=== PATIENT | female | born 1955 | race Caucasian/White ===

== ENCOUNTER → 2022-07-27 09:57 | Outpatient (BNVA) | payer MEDICARE, SELFPAY | PROVIDERS: Family Provider Student in an Organized Health Care Education/Training Program; PCP Nurse Practitioner Family; Visit Provider Nurse Practitioner Family | DX: I10 Essential (primary) hypertension (principal); M25.50 Pain in unspecified joint; G51.0 Bell's palsy; E78.5 Hyperlipidemia, unspecified; E55.9 Vitamin D deficiency, unspecified; Z90.710 Acquired absence of both cervix and uterus; Z98.890 Other specified postprocedural states; Z98.51 Tubal ligation status; Z79.899 Other long term (current) drug therapy | CPT/HCPCS: 80053; 80061; 82306; 82550; 84439; 84443; 84481; 86038; 86140; 86431 ==

== ENCOUNTER → 2022-08-05 09:45 | Outpatient (BNVA) | payer MEDICARE, SELFPAY | PROVIDERS: Family Provider Student in an Organized Health Care Education/Training Program; PCP Nurse Practitioner Family; Visit Provider Nurse Practitioner Family | DX: L25.5 Unspecified contact dermatitis due to plants, except food (principal) | CPT/HCPCS: 88304 ==

== ENCOUNTER → 2022-09-25 13:09 | Outpatient (BNVA) | payer MEDICARE, SELFPAY | PROVIDERS: Family Provider Student in an Organized Health Care Education/Training Program; PCP Nurse Practitioner Family; Visit Provider Nurse Practitioner Family | DX: J02.9 Acute pharyngitis, unspecified (principal) | CPT/HCPCS: 87071; 87880 ==

== ENCOUNTER 2022-12-31 08:58 | Outpatient (CLI) | payer MEDICARE, SELFPAY ==
--- NOTE | 2022-12-31 09:00 | MM_ITS ---
WS: [id number] VIEWS: MLO and CC views both breasts. 3D digital tomosynthesis is also included in this exam. No priors. Baseline study. Findings: There was no sign of mass, architectural distortion or suspicious calcification in either breast. The re are scattered areas of fibroglandular density Impression: MM/[place] [id number] BI-RADS: 1-Negative FOLLOW-UP: 1 Year Follow-up This mammogram was also analyzed by the Computer Aided Detection System R2 Imag e [employer].
== END 2022-12-31 08:59 | disposition home or self-care (01) ==
LOC: MOBLMAM 09:03
PROVIDERS: PCP Nurse Practitioner Family; Visit Provider Nurse Practitioner
DX: Z12.31 Encounter for screening mammogram for malignant neoplasm of breast
CPT/HCPCS: 77063; 77067

== ENCOUNTER → 2023-03-26 08:13 | Outpatient (BNVA) | payer MEDICARE, SELFPAY | PROVIDERS: PCP Family Medicine; Referring Provider Family Medicine; Visit Provider Nurse Practitioner | DX: G56.03 Carpal tunnel syndrome, bilateral upper limbs (principal) | CPT/HCPCS: 73110; 99204 ==

== ENCOUNTER → 2023-05-25 08:41 | Outpatient (BNVA) | payer MEDICARE, SELFPAY | PROVIDERS: PCP Family Medicine; Referring Provider Nurse Practitioner; Visit Provider Specialist | DX: G56.03 Carpal tunnel syndrome, bilateral upper limbs (principal) | CPT/HCPCS: 95911 ==

== ENCOUNTER → 2023-06-02 07:55 | Outpatient (BNVA) | payer MEDICARE, SELFPAY | PROVIDERS: PCP Family Medicine; Visit Provider Nurse Practitioner | DX: G56.03 Carpal tunnel syndrome, bilateral upper limbs (principal) | CPT/HCPCS: 99213 ==

== ENCOUNTER → 2023-08-25 08:54 | Outpatient (BNVA) | payer MEDICARE, SELFPAY | PROVIDERS: PCP Family Medicine; Visit Provider Family Medicine | DX: E78.5 Hyperlipidemia, unspecified (principal); R79.89 Other specified abnormal findings of blood chemistry; M25.50 Pain in unspecified joint; E55.9 Vitamin D deficiency, unspecified | CPT/HCPCS: 80053; 80061; 82306; 82607; 82746; 83735; 84443; 85025; 85651; 86038; 86140; 86431 ==

== ENCOUNTER → 2023-09-15 08:00 | Outpatient (BNVA) | payer MEDICARE, SELFPAY | PROVIDERS: PCP Family Medicine; Visit Provider Nurse Practitioner | DX: G56.03 Carpal tunnel syndrome, bilateral upper limbs (principal) | CPT/HCPCS: 99214 ==

== ENCOUNTER 2023-09-23 10:28 | Day surgery (SDC) | payer MEDICARE, SELFPAY ==
[2023-09-23] VITALS (10 sets, daily range): BP systolic 121–151; BP diastolic 72–97; PULSE 73–88; RESP 17–25; TEMP 36.2–36.7; O2SAT 91–99; BMI 29.8
[2023-09-23] MEDS: acetaminophen 1,000 MG/100 ML PIGGYBACK 400 MG IV (10:51)
[2023-09-23] MEDS: CELEcoxib 200 mg Capsule 400 MG PO (10:51)
[2023-09-23] MEDS: gabapentin 300 mg Capsule PO (10:51)
[2023-09-23] MEDS: sodium chloride 0.9% 1,000 ML 30 ML IV (10:51)
--- NOTE | 2023-09-23 10:57 | ANES.PREANE2 ---
Pre-Anesthetic Assessment Height/Weight: Height 1.68 m Weight 83.915 kg Temp Pulse Resp BP Pulse Ox O2 Del Method 97.9 F 81 18 131/88 99 Room Air 09/23/23 10:39 09/23/23 10:39 09/23/23 10:39 09/23/23 10:39 09/23/23 10:39 09/23/23 10:42 Operation Date: 09/23/23 11:55 Proposed Procedures p Carpal Tunnel Release(Left) - Noemy Browning MD Familial anesthetic complications: None Was Beta Oleg taken within 24 hours: N/A Was Clonidine taken within 24 hours: N/A Last intake: Intake Last Liquid Date 09/22/23 Last Liquid Time 22:00 Last Solid Date 09/22/23 Last Solid Time 22:00 Social No alcohol and No tobacco Exam alert, oriented x 3, clear to auscultation bilaterally and regular rate & rhythm Airway Mallampati: Class II Dentition: full Metabolic Hyperlipidemia Anesthetic Plan ASA status: 2 Anesthesia: General Risk of > 500 ml blood loss (7ml/kg in children): No Medications/Allergies Home Medications Medication Instructions Recorded Confirmed Last Taken Type grmqopccnsifr-rllgsbzkd-ioxwgqne 2 ml PO 12/14/22 09/15/23 Unknown History mg-10 mg-0.75 mg/5 mL oral liquid cholecalciferol (vitamin D3) 325 325 mcg PO DAILY 12/14/22 09/22/23 09/15/23 History mcg (13,000 unit) capsule cinnamon bark 500 mg capsule 500 mg PO DAILY 12/14/22 09/22/23 09/18/23 History (Cinnamon) fexofenadine 180 mg tablet 180 mg PO Q24H 12/14/22 09/22/23 09/22/23 History (Lizeth Allergy) flaxseed oil 1,000 mg capsule 1,000 mg PO DAILY 12/14/22 09/22/23 09/22/23 History garlic 500 mg capsule 500 mg PO DAILY 12/14/22 09/22/23 09/18/23 History magnesium hydroxide 400 mg (170 mg mg PO 12/14/22 09/15/23 09/22/23 History magnesium) chewable tablet niacin 50 mg tablet 50 mg PO DAILY 12/14/22 09/22/23 09/22/23 History vitamin E acetate 134 mg (200 134 mg PO DAILY 12/14/22 09/22/23 09/18/23 History unit) capsule atorvastatin 40 mg tablet 40 mg PO DAILY #90 tabs 01/05/23 09/22/23 09/22/23 Rx celecoxib 200 mg capsule (Celebrex) 200 mg PO BID #180 caps 01/05/23 09/22/23 09/22/23 Rx estradiol 2 mg tablet 2 mg PO DAILY #90 tabs 01/05/23 09/22/23 09/22/23 Rx baclofen 20 mg tablet 20 mg PO TID #90 tabs 03/22/23 09/22/23 09/23/23 07:00 Rx Bilateral Cock Up Splints #1 ea 03/26/23 09/15/23 Unknown Rx diclofenac sodium 1 % topical gel 2 g topical QID #100 grams 03/26/23 09/22/23 09/22/23 Rx Allergies Allergy/AdvReac Type Severity Reaction Status Date / Time No Known Allergies Allergy Verified 09/23/23 10:34 Current Medications Generic Name Dose Route Start Last Admin Trade Name Freq PRN Reason Stop Dose Admin Sodium Chloride 1,000 mls @ 30 mls/hr 09/23/23 10:45 09/23/23 10:51 Sodium Chloride 0.9% IV 09/24/23 10:44 30 mls/hr .Q24H ZENY Administration PFSH Anesthesia Medical History Hyperlipidemia Surgical History Previous back surgery H/O tubal ligation H/O: hysterectomy Family History Father Cancer Dementia Denies family history of Diabetes CAD (coronary artery disease) Clotting disorder Hyperlipidemia Psychiatric illness Chronic kidney disease (CKD) Suicide Bleeding disorder Family history of premature coronary artery disease Lung disease Hypertension Stroke Social History Smoking and tobacco/nicotine status: never used tobacco/nicotine Female Reproductive History Spontaneous abortions: No Data Anesthesia Cardiac Studies: No Data to Display
--- NOTE | 2023-09-23 10:59 | W.PM.OPSUD ---
Surgery/Procedure H&P Update DATE OF PROCEDURE: September 23, 2023 DATE H&P PERFORMED: 09/15/23 H&P UPDATE INFORMATION: I have reviewed H&P completed within last 30 days, I have examined patient prior to procedure, No changes to prior documentation and H&P is in [facility] EMR on date indicated PLANNED PROCEDURE: Operation Date: 09/23/23 11:55 Proposed Procedures p Carpal Tunnel Release(Left) - Noemy Browning MD Related Problem List Diagnoses (1) Carpal tunnel syndrome, left:
--- NOTE | 2023-09-23 11:00 | P.OP_ITS ---
Operative Report Date of procedure: September 23, 2023 Pre-op diagnosis: Left carpal tunnel syndrome Post-op diagnosis: Left carpal tunnel syndrome Post-op findings: Significant compression across the median nerve with purplish discoloration. Procedure done: Left carpal tunnel release Implants: None Specimens removed/disposition: None Surgeon: Noemy Browning MD Lipstick Molder: None Anesthesia: General (Per LMA, ASA 2) Estimated blood loss (mL): 2 Tourniquet time (min): 9 (At 250 mmHg) IV fluids (mL): 600 Urine output (mL): 0 (No Membreno) Complications: None Findings: Significant compression across the carpal canal Condition: stable Disposition: PACU (Then return to same-day surgery for discharge to home) Brief History: This 68-year-old woman presents today for left carpal tunnel release. When she was seen in the office, she had bilateral symptoms, but the left was worse than the right. She was not able to manage them conservatively. She was having difficulties with activities of daily living. She was taking anti-inflammatory medications as well as doing exercises, bracing, and had considered injection therapies as well. The patient wished to proceed with left carpal tunnel release. Risk and complications were discussed in the office. Consents were signed. Procedure: The patient was brought to the operating theater. The patient was administered a general anesthetic per LMA, ASA 2. This was well-tolerated. The tourniquet was elevated to 250 mmHg for a total tourniquet time of 9 minutes. The patient was also given Ancef 2 g preoperatively. The arm was then prepped and draped with DuraPrep in usual fashion with the arm draped free. A surgical pause was performed. At the time, the surgical pause, we confirmed the site and side of surgery. We also confirmed the patient's identity, appropriate and timely administration of preoperative antibiotics and preoperative surgical markings. An incision was then made along the thenar crease. The incision crossed the wrist joint in a curvilinear fashion. Dissection continued through skin and soft tissues using a scalpel. The palmaris longus was identified along with the transverse carpal ligament. Each of these was released carefully to avoid injury to the median nerve. We were able to dissect gently into the carpal canal which was noted to be quite tight with significant compression across the median nerve. The nerve was visualized and was an hourglass shape. The canal was subsequently palpated to assure there was no bony encroachment upon the canal. There was a quite thickened fibrous tissue within the canal, and this was opened longitudinally as well. The canal was then palpated distally and proximally to assure that my small finger was passed easily without impingement. Finding this to be so, attention was directed to closure. The wound was irrigated with ropivacaine plain. It was then closed with 3-0 nylon in an interrupted mattress fashion. Sterile dressing was then placed consisting of Dermabond, OpSite, fluffed fluffs, sterile soft roll, and an Johnny wrap. The tourniquet was released after 9 minutes. There were no complications. There were no specimens. The procedure was well tolerated. Plan is the patient will be discharged home. Related Problem List Diagnoses (1) Carpal tunnel syndrome, left:
--- NOTE | 2023-09-23 11:05 | ECG_ITS ---
[facility] Test Date: 2023-09-23 Pat Name: Ghazala Hirsch Department: Room: Gender: Female Vp Compliance: : 1955 Requested By: Noemy Browning Order Number: [id number] Juno MD: Gabino Francisco M.D. Measurements Intervals [place] Rate: 76 P: 36 TX: 175 QRS: -36 QRSD: 91 T: 23 QT: 397 QTc: 448 Interpretive Statements SINUS RHYTHM LEFT AXIS DEVIATION [QRS AXIS < -30] LOW QRS VOLTAGE IN PRECORDIAL LEADS [QRS DEFLECTION < 1.0 mV IN CHEST LEADS] POSSIBLE RIGHT VENTRICULAR CONDUCTION DELAY [RSR (QR) IN V1/V2] Compared to ECG 10/16/2018 14:03:33 Left-axis deviation now present Sinus tachycardia no longer present Incomplete right bundle-branch block no longer present Left anterior fascicular block no longer present Myocardial infarct finding no longer present Electronically Signed On 09-23-2023 22:28:52 CDT by Gabino Francisco M.D. [id number]
[2023-09-23] MEDS: ceFAZolin 2,000 mg SDV 2000 MG IVP (11:20)
[2023-09-23] MEDS: BUPivacaine 0.5% INJ 30 mL XX (11:50)
--- NOTE | 2023-09-23 13:40 | ANE.PACU2 ---
Inpatient post-anesthesia follow up: Airway intact: Yes Vital signs: Temperature 97.1 F Pulse Rate 84 Respiratory Rate 18 Blood Pressure 129/82 Pulse Oximetry 91 Oxygen Delivery Me thod Room Air Oxygen Flow Rate 8 Fraction of Inspir ed Oxygen Hydration adequate: Yes Nausea and vomiting: No Pain level: 1 Mental status: Baseline
== END 2023-09-23 13:43 | disposition home or self-care (01) ==
PROVIDERS: PCP Family Medicine; Visit Provider Specialist
PROC: (CPT 64721; principal; 2023-09-23 11:45)
DX: G56.02 Carpal tunnel syndrome, left upper limb (principal); E78.5 Hyperlipidemia, unspecified
CPT/HCPCS: 64721; 93005; J0131; J0690; J1100; J2405; J2704; J3010; J3490; J7030

== ENCOUNTER → 2023-10-06 15:15 | Outpatient (BNVA) | payer MEDICARE, SELFPAY | PROVIDERS: PCP Family Medicine; Visit Provider Nurse Practitioner | DX: G56.03 Carpal tunnel syndrome, bilateral upper limbs (principal); Z98.890 Other specified postprocedural states | CPT/HCPCS: 99213 ==

== ENCOUNTER 2023-11-02 11:33 | Day surgery (SDC) | payer MEDICARE, SELFPAY ==
[2023-11-02] VITALS (11 sets, daily range): BP systolic 111–138; BP diastolic 63–93; PULSE 77–88; RESP 13–20; TEMP 36.3–36.4; O2SAT 90–97; BMI 29.7
--- NOTE | 2023-11-02 12:07 | ANES.PREANE2 ---
Pre-Anesthetic Assessment Height/Weight: Height 5 ft 6 in Operation Date: 11/02/23 13:45 Proposed Procedures p Carpal Tunnel Release(Right) - Noemy Browning MD Social No alcohol and No tobacco Exam alert, oriented x 3, clear to auscultation bilaterally and regular rate & rhythm Airway Submandibular: within normal limits Cervical ROM: within normal limits Mallampati: Class II Dentition: full Anesthetic Plan ASA status: 2 Anesthesia: General Other: No prior issues with anesthesia NPO since midnight Patient underwent previous carpal tunnel surgery 09/22 without issues, LMA size 4 at that time Patient denies any cardiac issue Asthma, only issues with season changes. Labs reviewed and acceptable for surgery today METs greater than 4 Plan for general anesthesia with LMA Medications/Allergies Home Medications Medication Instructions Recorded Confirmed Last Taken Type cholecalciferol (vitamin D3) 325 325 mcg PO DAILY 12/14/22 11/01/23 10/25/23 History mcg (13,000 unit) capsule cinnamon bark 500 mg capsule 500 mg PO DAILY 12/14/22 11/01/23 10/25/23 History (Cinnamon) fexofenadine 180 mg tablet 180 mg PO Q24H 12/14/22 11/01/23 11/01/23 History (Lizeth Allergy) flaxseed oil 1,000 mg capsule 1,000 mg PO DAILY 12/14/22 11/01/23 10/25/23 History garlic 500 mg capsule 500 mg PO DAILY 12/14/22 11/01/23 11/01/23 History magnesium hydroxide 400 mg (170 mg 400 mg PO DAILY 12/14/22 11/01/23 11/01/23 History magnesium) chewable tablet niacin 50 mg tablet 50 mg PO DAILY 12/14/22 11/01/23 11/01/23 History vitamin E acetate 134 mg (200 134 mg PO DAILY 12/14/22 11/01/23 10/25/23 History unit) capsule atorvastatin 40 mg tablet 40 mg PO DAILY #90 tabs 01/05/23 11/01/23 10/31/23 Rx celecoxib 200 mg capsule (Celebrex) 200 mg PO BID #180 caps 01/05/23 11/01/23 11/01/23 Rx estradiol 2 mg tablet 2 mg PO DAILY #90 tabs 01/05/23 11/01/23 10/31/23 Rx baclofen 20 mg tablet 20 mg PO TID #90 tabs 03/22/23 11/01/23 11/01/23 Rx Bilateral Cock Up Splints #1 ea 03/26/23 10/06/23 Unknown Rx Multi Vitamin 1 tab PO DAILY 11/01/23 11/01/23 11/01/23 History diclofenac sodium 1 % topical gel 2 g topical QID PRN Pain 11/01/23 11/01/23 Unknown History Allergies Allergy/AdvReac Type Severity Reaction Status Date / Time No Known Allergies Allergy Verified 11/01/23 09:13 [facility] Anesthesia Medical History Hyperlipidemia Surgical History (Updated 10/08/23 @ 17:06 by ERNESTO Bradley) S/P carpal tunnel release Date of procedure: September 23, 2023 Pre-op diagnosis: Left carpal tunnel syndrome Procedure done: Left carpal tunnel release Surgeon: Noemy Browning MD Previous back surgery H/O tubal ligation H/O: hysterectomy Family History Father Cancer Dementia Denies family history of Diabetes CAD (coronary artery disease) Clotting disorder Hyperlipidemia Psychiatric illness Chronic kidney disease (CKD) Suicide Bleeding disorder Family history of premature coronary artery disease Lung disease Hypertension Stroke Social History Smoking and tobacco/nicotine status: never used tobacco/nicotine Female Reproductive History Spontaneous abortions: No Data Anesthesia Cardiac Studies: No Data to Display
[2023-11-02] MEDS: sodium chloride 0.9% 1,000 ML 30 ML IV (12:11)
[2023-11-02] MEDS: acetaminophen 1,000 MG/100 ML PIGGYBACK 400 MG IV (12:11)
[2023-11-02] MEDS: CELEcoxib 200 mg Capsule 400 MG PO (12:12)
[2023-11-02] MEDS: gabapentin 300 mg Capsule PO (12:12)
--- NOTE | 2023-11-02 12:20 | W.PM.OPSUD ---
Surgery/Procedure H&P Update DATE OF PROCEDURE: November 02, 2023 DATE H&P PERFORMED: 10/06/23 H&P UPDATE INFORMATION: I have reviewed H&P completed within last 30 days, I have examined patient prior to procedure, No changes to prior documentation and H&P is in [facility] EMR on date indicated PLANNED PROCEDURE: Operation Date: 11/02/23 13:45 Proposed Procedures p Carpal Tunnel Release(Right) - Noemy Browning MD Related Problem List Diagnoses (1) Carpal tunnel syndrome, bilateral:
[2023-11-02] MEDS: ceFAZolin 2,000 mg SDV 2000 MG IVP (12:54)
[2023-11-02] MEDS: BUPivacaine 0.5% INJ 30 mL XX (13:24)
--- NOTE | 2023-11-02 13:46 | PM.OP ---
Operative Report Date of procedure: November 02, 2023 Pre-op diagnosis: Right carpal tunnel syndrome Post-op diagnosis: Right carpal tunnel syndrome Post-op findings: Severe compression across the carpal canal consistent with right carpal tunnel syndrome. Purplish discoloration to the median nerve. Procedure done: Right carpal tunnel release Implants: None Specimens removed/disposition: None Surgeon: Noemy Browning MD Plant Cytologist: None Anesthesia: MAC (General per LMA, ASA 2) Estimated blood loss (mL): 1 Tourniquet time (min): 11 (At 250 mmHg) IV fluids (mL): 800 Urine output (mL): 0 (No Membreno) Complications: None Findings: Significant compression across the median nerve Condition: stable Disposition: PACU (Then return to same-day surgery for discharge to home) Brief History: This 68-year-old woman presents today for right carpal tunnel release. Previously, on September 22 of this year, she underwent left carpal tunnel release, and she has recovered quite nicely from this. She now wishes to proceed with right carpal tunnel release. Risks and complications were discussed with the patient. Consents were signed and questions were answered. Procedure: The patient was brought to the operating theater. The patient was administered a general anesthetic per LMA, ASA 2. This was well-tolerated. The tourniquet was elevated to 250 mmHg for a total tourniquet time of 11 minutes. The patient was also given Ancef 2 g preoperatively. The arm was then prepped and draped with DuraPrep in usual fashion with the arm draped free. A surgical pause was performed. At the time, the surgical pause, we confirmed the site and side of surgery. We also confirmed the patient's identity, appropriate and timely administration of preoperative antibiotics and preoperative surgical markings. An incision was then made along the thenar crease. The incision crossed the wrist joint in a curvilinear fashion. Dissection continued through skin and soft tissues using a scalpel. The palmaris longus was identified along with the transverse carpal ligament. Each of these was released carefully to avoid injury to the median nerve. We were able to dissect gently into the carpal canal which was noted to be quite tight with significant compression across the median nerve. The nerve was visualized and was an hourglass shape. The canal was subsequently palpated to assure there was no bony encroachment upon the canal. There was a quite thickened fibrous tissue within the canal, and this was opened longitudinally as well. The canal was then palpated distally and proximally to assure that my small finger was passed easily without impingement. Finding this to be so, attention was directed to closure. The wound was irrigated with ropivacaine plain. It was then closed with 3-0 nylon in an interrupted mattress fashion. Sterile dressing was then placed consisting of Dermabond, OpSite, fluffed fluffs, sterile soft roll, and an Johnny wrap. The tourniquet was released after 11 minutes. There were no complications. There were no specimens. The procedure was well tolerated. Plan is the patient will be discharged home. Related Problem List Diagnoses (1) Carpal tunnel syndrome on right:
== END 2023-11-02 14:50 | disposition home or self-care (01) ==
PROVIDERS: PCP Family Medicine; Visit Provider Specialist
PROC: (CPT 64721; principal; 2023-11-02 13:35)
DX: G56.01 Carpal tunnel syndrome, right upper limb (principal); Z98.890 Other specified postprocedural states; E78.5 Hyperlipidemia, unspecified
CPT/HCPCS: 64721; J0131; J0690; J1100; J2405; J2704; J3010; J3490; J7030

== ENCOUNTER → 2023-11-17 10:17 | Outpatient (BNVA) | payer MEDICARE, SELFPAY | PROVIDERS: PCP Family Medicine; Visit Provider Nurse Practitioner | DX: Z98.890 Other specified postprocedural states (principal) | CPT/HCPCS: 99024 ==

== ENCOUNTER → 2023-12-15 09:00 | Outpatient (BNVA) | payer MEDICARE, SELFPAY | PROVIDERS: PCP Family Medicine; Visit Provider Nurse Practitioner | DX: Z98.890 Other specified postprocedural states (principal) | CPT/HCPCS: 99024 ==

== ENCOUNTER 2024-02-16 08:52 | Outpatient (CLI) | payer MEDICARE, SELFPAY ==
--- NOTE | 2024-02-16 09:00 | MM_ITS ---
WS: [id number] BILATERAL SCREENING DIGITAL TOMOSYNTHESIS MAMMOGRAM WITH CAD HISTORY: SCREENING COMPARISON: 12/31/2022 Bilateral CC and MLO views with tomosynthesis and synthetic mammography submitted. Computer aided det ection analyzed. Breast composition: The breasts are almost entirely fatty. No suspicious masses, microcalcifications or architectural distortion. MM/MM scr BI tomosynthesis [id number] IMPRESSION: BI-RADS: 1 - Negative. FOLLOW UP: 1 Year Follow-up
== END 2024-02-16 08:53 | disposition home or self-care (01) ==
LOC: MOBLMAM 08:54
PROVIDERS: PCP Family Medicine; Visit Provider Family Medicine
DX: Z12.31 Encounter for screening mammogram for malignant neoplasm of breast (principal); R92.313 Mammographic fatty tissue density, bilateral breasts
CPT/HCPCS: 77063; 77067

== ENCOUNTER → 2024-03-15 14:57 | Outpatient (BNVA) | payer MEDICARE, SELFPAY | PROVIDERS: PCP Family Medicine; Visit Provider Nurse Practitioner | DX: Z98.890 Other specified postprocedural states (principal); G56.03 Carpal tunnel syndrome, bilateral upper limbs | CPT/HCPCS: 99213 ==

== ENCOUNTER → 2024-05-22 14:56 | Outpatient (BNVA) | payer MEDICARE, SELFPAY | PROVIDERS: PCP Family Medicine; Visit Provider Podiatrist Foot & Ankle Surgery | DX: L60.3 Nail dystrophy (principal) | CPT/HCPCS: 99203 ==

== ENCOUNTER → 2024-06-26 16:16 | Outpatient (BNVA) | payer MEDICARE, SELFPAY | PROVIDERS: PCP Family Medicine; Visit Provider Podiatrist Foot & Ankle Surgery | DX: B35.1 Tinea unguium (principal) | CPT/HCPCS: 36415; 80053 ==

== ENCOUNTER → 2024-08-07 14:53 | Outpatient (BNVA) | payer MEDICARE, SELFPAY | PROVIDERS: PCP Family Medicine; Visit Provider Podiatrist Foot & Ankle Surgery | DX: B35.1 Tinea unguium (principal); Z79.899 Other long term (current) drug therapy | CPT/HCPCS: 99213 ==

== ENCOUNTER → 2024-08-09 10:00 | Outpatient (BNVA) | payer MEDICARE, SELFPAY | PROVIDERS: PCP Family Medicine; Visit Provider Family Medicine | DX: E78.2 Mixed hyperlipidemia (principal); G56.02 Carpal tunnel syndrome, left upper limb; L03.90 Cellulitis, unspecified; T14.8XXA Other injury of unspecified body region, initial encounter; W57.XXXA Bitten or stung by nonvenomous insect and other nonvenomous arthropods, initial encounter; Z79.899 Other long term (current) drug therapy | CPT/HCPCS: 80053; 80061; 84443; 85025 ==

== ENCOUNTER → 2024-11-23 18:20 | Outpatient (BNVA) | payer MEDICARE, SELFPAY | PROVIDERS: PCP Family Medicine; Visit Provider Emergency Medicine | DX: R39.9 Unspecified symptoms and signs involving the genitourinary system (principal) | CPT/HCPCS: 81000; 87086 ==

== ENCOUNTER → 2024-12-18 09:30 | Outpatient (BNVA) | payer MEDICARE, SELFPAY | PROVIDERS: PCP Family Medicine; Visit Provider Family Medicine | DX: M25.50 Pain in unspecified joint (principal); R45.86 Emotional lability; R23.2 Flushing; R53.83 Other fatigue; S80.862A Insect bite (nonvenomous), left lower leg, initial encounter; W57.XXXA Bitten or stung by nonvenomous insect and other nonvenomous arthropods, initial encounter | CPT/HCPCS: 82670; 83001; 84144; 84443; 85651; 86038; 86140; 86431; 86618; 86666; 86757 ==

== ENCOUNTER → 2025-02-15 11:30 | Outpatient (BNVA) | payer MEDICARE, SELFPAY | PROVIDERS: PCP Family Medicine; Visit Provider Family Medicine | DX: M25.50 Pain in unspecified joint (principal); R53.82 Chronic fatigue, unspecified | CPT/HCPCS: 82785; 86001; 86003; 86008 ==